=== PATIENT | female | born 1935 | race Caucasian/White ===

== ENCOUNTER 2017-05-21 14:05 | Emergency (ER) | payer OTHER ==
[~2017-05-21] VITALS: Ht 157.5 cm; Wt 66.7 kg
[2017-05-21] MEDS ORDERED: VOLTAREN100 GM TOP (14:23)
[2017-05-21] MEDS ORDERED: MELOXICAM7.5 M1 PO (14:23)
[2017-05-21] MEDS ORDERED: CRESTOR10 M1 PO (14:24)
[2017-05-21] MEDS ORDERED: OMEPRAZOLE40 M1 PO (14:24)
[2017-05-21] MEDS ORDERED: ALPRAZOLAM0.25 M1 PO (14:24)
--- NOTE | 2017-05-21 14:35 | ED GENERAL ADULT ---
History of Present Illness General Chief Complaint: General Adult Stated Complaint: ?MED REACTION Source: patient Exam Limitations: no limitations Vital Signs & Intake/Output Vital Signs & Intake/Output Vital Signs Date Time Temp Pulse Resp B/P B/P Pulse O2 O2 Flow FiO2 Mean Ox Delivery Rate 05/21 1534 84 20 164/78 97 Room Air 05/21 1421 96.5 71 17 170/90 96 Room Air 05/21 1419 97 Room Air ED Intake and Output 05/22 0000 05/21 1200 Intake Total Output Total Balance Patient 147 lb Weight Weight Reported by Patient Measurement Method Allergies Coded Allergies: Sulfa (Sulfonamide Antibiotics) (VOMITING 05/21/17) amoxicillin (VOMITING 05/21/17) oxycodone (VOMITING 05/21/17) sulfamethoxazole (From BACTRIM) (VOMITING 05/21/17) trimethoprim (From BACTRIM) (VOMITING 05/21/17) Reconcile Medications Alprazolam 0.25 MG TABLET 1 TAB PO TIDPRN ANXIETY (Reported) Diclofenac Sodium (Voltaren) 1 % GEL..GRAM. 1 GM TOP 4 TIMES/DAY OA (Reported ) apply to affected area(s) Meloxicam 7.5 MG TABLET 1 TAB PO DAILY PAIN (Reported) Omeprazole 40 MG CAPSULE.DR 1 CAP PO DAILY ACID REFLUX (Reported) Rosuvastatin Calcium (Crestor) 10 MG TABLET 1 TAB PO DAILY CHOLESTROL ( Reported) Triage Note: 81 Y/O FEMALE BIBA FROM HOME FOR NUMBNESS AND TINGLING TO FACE. PT STS SHE WAS SEEN AT URGENT CARE YESTERDAY AND WAS DX WITH OA AND GIVEN SOME RX OINTMENT AND MEDICATION. PT STS SHE TOOK MED AND CREAM TODAY AND ABOUT AN HOUR AND HALF LATER SHE STARTED TO FEEL "FUNNY' IN THE FACE AND WHEN SHE RETRIEVED HER MEDICATION REACTION FORM SHE NOTED SHE WAS EXPERIENCING ALL THE SYMPTOMS NOTED ON THE SHEET SUCH TINGLING TO LIPS WHICH IS STILL PRESENT BUT FACE NUMBNESS/TINGLING RESOLVED. MARTHA ALFORD AT BEDSIDE TO LAURA PT Triage Nurses Notes Reviewed? yes Onset: Abrupt Duration: day(s): (1), better, changing over time Timing: single episode today Injury Environment: home Severity: mild, moderate No Modifying Factors: none LMP (ages 10-50): post menopausal : No Patient currently breastfeeds: No HPI: 81-year-old female past medical history of GERD, osteoarthritis, anxiety. Since her evaluation and possible medication reaction. Patient reports that yesterday she was seen in urgent care for right shoulder pain. This pain has been ongoing for several months intermittently. Episode currently was more severe usual so she went to the urgent care. An x-ray was obtained which showed evidence of osteoarthritis as she was started on meloxicam and Voltaren gel. She took them both this morning for the first time and within an hour or so later noticed that she had numbness and tingling on both sides of her face and around her lips and mouth. She denies any difficulty breathing difficulty swallowing no swelling no rashes no nausea or vomiting no chest pain back pain no abdominal pain. She's never had a reaction like this in the past. She's never taken these medications before. She states that she looked up side effects to these meds and realized that her reaction was very similar. Patient states that the numbness and tingling in her face has gone away but she still has some in her lips. She also reports feeling very anxious about this. She does any history of anxiety and takes Xanax as needed. She does not take this every day. She did not take any today. (Gibran Valencia) Past History Travel History Traveled to [place] past 21 day No Medical History Any Pertinent Medical History? see below for history Cardiovascular: hyperlipidemia Gastrointestinal: GERD, irritable bowel syndrome Musculoskeletal: osteoarthritis Psychiatric: anxiety Surgical History Surgical History: non-contributory Psychosocial History What is your primary language Chinese Tobacco Use: Quit >30 days ago ETOH Use: denies use Illicit Drug Use: denies illicit drug use Family History Hx Contributory? No (Gibran Valencia) Review of Systems Review of Systems Constitutional: Reports: no symptoms. EENTM: Reports: no symptoms. Respiratory: Reports: no symptoms. Cardiovascular: Reports: no symptoms. GI: Reports: no symptoms. Genitourinary: Reports: no symptoms. Musculoskeletal: Reports: no symptoms. Skin: Reports: no symptoms. Neurological/Psychological: Reports: see HPI, anxiety, numbness, paresthesia, tingling. Hematologic/Endocrine: Reports: no symptoms. Immunologic/Allergic: Reports: no symptoms. All Other Systems: Reviewed and Negative (Gibran Valencia) Physical Exam Physical Exam General Appearance: well developed/nourished, alert, awake, anxious, mild distress Head: atraumatic, normal appearance Eyes: Bilateral: normal appearance, PERRL, EOMI. Ears, Nose, Throat: normal pharynx, normal ENT inspection, hearing grossly normal Neck: normal inspection, supple, full range of motion Respiratory: normal breath sounds, chest non-tender, no respiratory distress, lungs clear Cardiovascular: regular rate/rhythm, normal peripheral pulses Peripheral Pulses: 2+ radial (R), 2+ radial (L) Gastrointestinal: soft, non-tender Back: normal inspection, normal range of motion, no vertebral tenderness Extremities: normal inspection, normal range of motion, no edema Neurologic/Psych: no motor/sensory deficits, awake, alert, oriented x 3, normal gait, normal mood/affect, 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 Skin: intact, normal color, warm/dry Lymphatic: no anterior cervical florentino Core Measures ACS in differential dx? No CVA/TIA Diagnosis: No Sepsis Present: No Sepsis Focused Exam Completed? No (Gibran Valencia) Progress Differential Diagnoses I considered the following diagnoses in my evaluation of the patient: [ Medication side effect, CVA, electrolyte abnormality, viral syndrome, multiple sclerosis acute coronary syndrome, muscle strain] Plan of Care: Orders Procedure Date/time Status Regular Diet 05/22 B Active EKG 05/21 1606 Active Telemetry/Rescue Instructor 05/21 1508 Active URINALYSIS 05/21 1417 Complete TROPONIN LEVEL 05/21 1417 Complete PARTIAL THROMBOPLASTIN TIME 05/21 1417 Complete PROTHROMBIN TIME 05/21 1417 Complete MAGNESIUM 05/21 1417 Complete COMPREHENSIVE METABOLIC PANEL 05/21 1417 Complete CBC WITHOUT DIFFERENTIAL 05/21 1417 Complete EKG 05/21 1417 Active Laboratory Tests 05/21/17 1514: Urine Color YEL, Urine Clarity CLEAR, Urine pH 6.5, Ur Specific [place] <= 1.005 , Urine Protein NEG, Urine Ketones NEG, Urine Nitrite NEG, Urine Bilirubin NEG, Urine Urobilinogen 0.2, Ur Leukocyte Esterase TRACE H, Ur Microscopic SEDIMENT EXAMINED, Urine RBC FEW H, Urine WBC 1-3 H, Ur Epithelial Cells RARE, Urine Hemoglobin TRACE-LYSED, Urine Glucose NEG 05/21/17 1430: Anion Gap 13, Estimated GFR > 60, BUN/Creatinine Ratio 16.3, Glucose 96, Calcium 10.1, Magnesium 1.8, Total Bilirubin 0.6, AST 23, ALT 29, Alkaline Phosphatase 75, Troponin I < 0.01, Total Protein 7.0, Albumin 4.2, Globulin 2.8, Albumin/ Globulin Ratio 1.5, PT 11.5, INR 1.05, APTT 33, CBC w Diff NO MAN DIFF REQ, RBC 4.74, MCV 87.7, MCH 29.5, MCHC 33.6, RDW 13.7, MPV 8.9, Gran % 56.3, Lymphocytes % 34.6, Monocytes % 5.4, Eosinophils % 2.8, Basophils % 0.9, Absolute Granulocytes 4.4, Absolute Lymphocytes 2.7, Absolute Monocytes 0.4, Absolute Eosinophils 0.2, Absolute Basophils 0.1 Patient seen and evaluated. She is neurologically intact. Vital signs are stable she was mildly hypertensive but this rapidly improved. No chest pain no shortness of breath. All blood work is within normal limits. Chest x-ray CT scan of the brain within normal limits. Initial EKG showed possible concern of A. fib however there are clearly P waves visible. Patient was monitored on telemetry with clear P waves. A repeat EKG was obtained which showed sinus rhythm with PACs. Patient states that she currently is feeling well and is asymptomatic. She is no longer having any symptoms since arriving to the ER. Reviewed results of today's visit with patient. Advised her to avoid taking meloxicam and Voltaren gel. Tylenol for pain. Follow-up with the primary care doctor discussed return precautions in detail. Case discussed with AND he agrees. Diagnostic Imaging: Viewed by Me: Radiology Read, CT Scan. Discussed w/RAD: Radiology Read, CT Scan. Radiology Impression: PATIENT: ATA LIGHT PRESENT AGE: 81 PATIENT ACCOUNT NO: [id number] : 37 LOCATION: [facility] ORDERING PHYSICIAN: Gibran THOMAS SERVICE DATE: 05/21/17 EXAM TYPE: CAT - CT HEAD WO IV CONTRAST EXAMINATION: CT HEAD WITHOUT CONTRAST CLINICAL INFORMATION: Intracranial hemorrhage, mass. COMPARISON: None TECHNIQUE: Contiguous axial imaging was performed from the skull base to vertex without intravenous administration of contrast. DLP: 548 mGy-cm FINDINGS: There is no evidence of acute intracranial hemorrhage or territorial infarction. No abnormal mass effect or midline shift is seen. Landin to white matter differentiation is well preserved. No extra-axial fluid collections are identified. The ventricles are normal in size. There is no abnormal attenuation within the brain parenchyma. The osseous structures and soft tissues are normal. The mastoid air cells and visualized portions of the paranasal sinuses are well aerated. IMPRESSION: No acute intracranial pathology. DICTATED BY: Galdino PRUITT,Pegeer DATE/TIME DICTATED:05/21/171506 RECORDS MANAGEMENT ASSOCIATE:CHANDAN DATE/TIME TRANSCRIBED:05/21/171506 CONFIDENTIAL, DO NOT COPY WITHOUT APPROPRIATE AUTHORIZATION. <Electronically signed in Other Vendor System> SIGNED BY: Galdino PRUITT,Christinar 05/21/171514 CXR Impression: PATIENT: ATA LIGHT PRESENT AGE: 81 PATIENT ACCOUNT NO: [id number] : 37 LOCATION: [facility] ORDERING PHYSICIAN: Gibran THOMAS SERVICE DATE: 05/21/17 EXAM TYPE: RAD - XRY-PORTABLE CHEST XRAY EXAMINATION: XR PORTABLE CHEST CLINICAL INFORMATION: Hypersensitive pneumonia CHF COMPARISON: None TECHNIQUE: Portable frontal view of the chest was obtained. FINDINGS: Lungs and Mora: Patchy opacity projecting over the RIGHT lower lobe might be a patchy infiltrates. Pleura: Normal. Costophrenic angles are sharp. No pneumothorax. Heart: The heart is normal in size. Mediastinum: The mediastinum is within normal limits.. Bones: Skeletal structures included are normal for patient's age. IMPRESSION: Patchy opacity projecting over the RIGHT lower lobe might be a patchy infiltrates, clinical correlation and follow-up chest x-ray one month after treatment recommended to ensure complete clearance and exclude pathology. DICTATED BY: Galdino PRUITT,Hadeer DATE/TIME DICTATED:05/21 RECORDS MANAGEMENT ASSOCIATE:GRANT DATE/TIME TRANSCRIBED:05/21/171518 CONFIDENTIAL, DO NOT COPY WITHOUT APPROPRIATE AUTHORIZATION. Initial ED EKG: NORMAL SINUS RHYTHM WITH pacS/SINUS PAUSE, CONSIDERED a. FIB HOWEVER THERE DOES APPEAR TO BE p WAVES, REPEAT ekg 1 HOUR LATER CONFIRMS SINUS RHYTHM WITH MULTIPLE pacS. p WAVES ARE CLEARLY VISIBLE. Repeat EKG: unchanged (Gibran Valencia) Departure Departure Disposition: HOME OR SELF CARE Condition: Stable Clinical Impression Primary Impression: Medication side effect Referrals: Prudence PRUITT,Salvador Chakraborty (PCP/Family) Additional Instructions: Stop taking meloxicam and Voltaren gel. You can use Tylenol 1000 mg every 6 hours as needed for pain. Make a follow-up with your primary care doctor for this week to review all results of today's visit. Monitor symptoms closely. If symptoms return, YOU HAVE New symptoms or any other concerns return immediately. Departure Forms: Customer Survey General Discharge Information (Gibran Valencia) PA/METAL DRESSER Co-Sign Statement Statement: ED Attending supervision documentation- x I saw and evaluated the patient. I have also reviewed all the pertinent lab results and diagnostic results. I agree with the findings and the plan of care as documented in the PA's/METAL DRESSER's documentation. [] I have reviewed the ED Record and agree with the PA's/METAL DRESSER's documentation. [] Additions or exceptions (if any) to the PAs/METAL DRESSER's note and plan are summarized below: [] (Rita PRUITT,Maged) Critical Care Note Critical Care Note Critical Care Time: non-applicable (Gibran Valencia)
[2017-05-21 14:51] LABS: ABSOLUTE BASOPHIL COUNT 0.1 /CUMM (0.0-0.2); ABSOLUTE EOSINOPHIL COUNT 0.2 /CUMM (0.0-0.7); ABSOLUTE GRANULOCYTE CT 4.4 /CUMM (1.4-6.5); ABSOLUTE LYMPH COUNT 2.7 /CUMM (1.2-3.4); ABSOLUTE MONOCYTE COUNT 0.4 /CUMM (0.10-0.60); BASOPHIL % 0.9 % (0.0-2.0); EOSINOPHIL % 2.8 % (0-5); GRANULOCYTE % 56.3 % (42.2-75.2); HEMATOCRIT 41.5 % (37-47); MEAN CORPUSCULAR HGB 29.5 PG (27.0-31.0); MEAN CORPUSCULAR HGB CONC 33.6 G/DL (33.0-37.0); MEAN CORPUSCULAR VOLUME 87.7 FL (81.0-99.0); MEAN PLATELET VOLUME 8.9 FL (7.4-10.4); PLATELET COUNT 292 /CUMM (130-400); RBC DISTRIBUTION WIDTH 13.7 % (11.5-14.5); RED BLOOD CELL CT 4.74 /CUMM (4.20-5.40); WHITE BLOOD CELL COUNT 7.8 /CUMM (4.8-10.8)
[2017-05-21 14:59] LABS: PT 11.5 SEC (9.4-12.5); PTT 33 SEC (25-37)
--- NOTE | 2017-05-21 15:15 | CT SCAN REPORT ---
EXAMINATION: CT HEAD WITHOUT CONTRAST CLINICAL INFORMATION: Intracranial hemorrhage, mass. COMPARISON: None TECHNIQUE: Contiguous axial imaging was performed from the skull base to vertex without intravenous administration of contrast. DLP: 548 mGy-cm FINDINGS: There is no evidence of acute intracranial hemorrhage or territorial infarction. No abnormal mass effect or midline shift is seen. Landin to white matter differentiation is well preserved. No extra-axial fluid collections are identified. The ventricles are normal in size. There is no abnormal attenuation within the brain parenchyma. The osseous structures and soft tissues are normal. The mastoid air cells and visualized portions of the paranasal sinuses are well aerated. IMPRESSION: No acute intracranial pathology.
--- NOTE | 2017-05-21 15:25 | RADIOLOGY REPORT ---
EXAMINATION: XR PORTABLE CHEST CLINICAL INFORMATION: Hypersensitive pneumonia CHF COMPARISON: None TECHNIQUE: Portable frontal view of the chest was obtained. FINDINGS: Lungs and Mora: Patchy opacity projecting over the RIGHT lower lobe might be a patchy infiltrates. Pleura: Normal. Costophrenic angles are sharp. No pneumothorax. Heart: The heart is normal in size. Mediastinum: The mediastinum is within normal limits.. Bones: Skeletal structures included are normal for patient's age. IMPRESSION: Patchy opacity projecting over the RIGHT lower lobe might be a patchy infiltrates, clinical correlation and follow-up chest x-ray one month after treatment recommended to ensure complete clearance and exclude pathology.
[2017-05-21 15:34] VITALS: BP 164/78
== END 2017-05-21 16:58 ==
LOC: ERH 14:05
PROVIDERS: Physician Assistant Medical
DX: T50.991A Poisoning by other drugs, medicaments and biological substances, accidental (unintentional), initial encounter (principal); R20.0 Anesthesia of skin
CPT/HCPCS: 71045; 81001; 93005; 93010